=== PATIENT | female | born 1945 | race Caucasian/White ===

== ENCOUNTER 2019-03-13 08:03 | Emergency (ER) | payer OTHER ==
[~2019-03-13] VITALS: Ht 157.5 cm; Wt 70.3 kg
[2019-03-13 08:09] VITALS: Ht 157.5 cm; Wt 70.3 kg
[2019-03-13 09:55] VITALS: BP 140/76
== END 2019-03-13 09:55 | disposition home or self-care (01) ==
LOC: ED 08:03
DX: R22.31 Localized swelling, mass and lump, right upper limb (principal); T63.441A Toxic effect of venom of bees, accidental (unintentional), initial encounter; Y92.89 Other specified places as the place of occurrence of the external cause
CPT/HCPCS: J7512